=== PATIENT | male | born 1950 | race Caucasian/White ===

== ENCOUNTER 2016-04-29 05:28 | Emergency (ER) | payer OTHER ==
--- NOTE | 2016-04-29 07:19 | DIAGNOSTIC IMAGING REPORT ---
PROCEDURE: CT HEAD WITHOUT CONTRAST INDICATION: Fall injury, initial encounter TECHNIQUE: Noncontrast axial images with sagittal and coronal reformations. COMPARISON: None. FINDINGS: Mild cortical atrophy. Ventricular system and brain parenchyma are normal. No evidence of acute intracranial process. Mild bilateral maxillary sinus disease. Mastoids are clear. IMPRESSION: 1. Mild cortical atrophy 2. Sinus disease 3. Findings discussed with Dr. Morin at 07:19 a.m.[facility] Standard Time
--- NOTE | 2016-04-29 07:19 | DIAGNOSTIC IMAGING REPORT ---
PROCEDURE: CT HEAD WITHOUT CONTRAST INDICATION: Fall injury, initial encounter TECHNIQUE: Noncontrast axial images with sagittal and coronal reformations. COMPARISON: None. FINDINGS: Mild cortical atrophy. Ventricular system and brain parenchyma are normal. No evidence of acute intracranial process. Mild bilateral maxillary sinus disease. Mastoids are clear. IMPRESSION: 1. Mild cortical atrophy 2. Sinus disease 3. Findings discussed with Dr. Morin at 07:19 a.m.[facility] Standard Time
--- NOTE | 2016-04-29 07:23 | DIAGNOSTIC IMAGING REPORT ---
PROCEDURE: CT CERVICAL SPINE W/O CONTRAST CLINICAL INDICATION: Fall injury, initial encounter TECHNIQUE: Noncontrast axial images with sagittal and coronal reformations. COMPARISON: None. FINDINGS: Normal alignment without fracture. Mild degenerative changes. Moderate right C4-5 foraminal stenosis. Mild congenital spinal stenosis from C2 -3 to C6-7. IMPRESSION: 1. No acute changes 2. Mild degenerative changes with foraminal and spinal stenosis 3. Results discussed with Dr. Morin All CT scans at this facility use dose modulation, iterative reconstruction, and/or weight-based dosing when appropriate to reduce radiation dose to as low as reasonably achievable.
--- NOTE | 2016-04-29 07:28 | DIAGNOSTIC IMAGING REPORT ---
PROCEDURE: XR CHEST 2 VIEW INDICATION: Fall injury, initial encounter TECHNIQUE: PA and lateral view. COMPARISON: None. FINDINGS: Minor left basilar scarring. Cardiovascular structures are normal. Mild degenerative changes of the spine. No evidence of an acute fracture. IMPRESSION: 1. No acute changes 2. Mild degenerative changes of the thoracic spine
--- NOTE | 2016-04-29 07:31 | DIAGNOSTIC IMAGING REPORT ---
PROCEDURE: XR LUMBAR SPINE 2 OR 3 VIEWS INDICATION: Fall injury, initial encounter TECHNIQUE: Three views. COMPARISON: None. FINDINGS: Normal alignment. Chronic mild L1 compression fracture with L1-2 disc space narrowing and prominent spurring. Soft tissues are unremarkable. IMPRESSION: 1. Old L1 compression fracture 2. Degenerative changes
--- NOTE | 2016-04-29 07:32 | ED NURSING NOTES ---
Clinical Report - Nurses [facility] [place] [address] 04/29/2016 5:30 Patient: NADINE JAIMES TRIAGE Triage time 05:34. Acuity: LEVEL 4. Chief Complaint: NECK PAIN and BACK PAIN. --05:41 Diogo Burns R.N. 05:34 04/29/16. BP: 127/54. HR: 99. RR: 18. O2 saturation: 97%. Temp: 97.5 F. Pain level now 11/24. --05:41 Diogo Burns R.N. Weight: 97.5 kg stated. Height/Length: 71 inches Per Patient. BMI: 30. --05:39 Diogo Burns R.N. Medications Aspirin Oral. --05:36 Diogo Burns R.N. Hydrocodone-Acetaminophen Oral. --05:37 Diogo Burns R.N. Hydrochlorothiazide Oral. --05:39 Diogo Burns R.N. Medication/allergy information source: the patient. --05:41 Diogo Burns R.N. Allergies No Known Drug Allergy. --05:36 Diogo Burns R.N. History Arrived by private vehicle, and unaccompanied. [place] ( Pt had a GLF last night. Pt may have had pos LOC, but is not sure. Pt is having nausea, but no vomiting. Pt wasnt feeling dizzy or light headed. Pt fell due to a trip.). History of recent trauma (mild)- fall (yesterday). Treatment JUNIOR RECRUITER: None. SOCIAL HX: Never smoker. No alcohol use or drug use. --05:41 Diogo Burns R.N. PROBLEMS: Hypokalemia. Atrial Fibrillation. Crohn's Disease. Immunizations. --05:37 Diogo Burns R.N. Interventions ID band on patient. To treatment room. --05:41 Diogo Burns R.N. PHYSICAL ASSESSMENT GENERAL / NEURO / PSYCH: Alert. Oriented X 4. Appears in no acute distress. RESPIRATORY: Respirations not labored. Chest nontender. Breath sounds within normal limits. CVS: Normal heart rate and rhythm. Capillary refill less than 2 seconds. GI / : Abdomen soft and nontender. Bowel sounds within normal limits. EXTREMITIES: Sensation intact in extremities. ROM of extremities within normal limits. BACK: ( neck and back pain , but is able to ambulate without assistance. Pt has limited rom in his neck due to the pain.). Normal inspection of the neck and back. No neck or back tenderness. ROM of neck and back within normal limits. --05:42 Diogo Burns R.N. NURSING PROGRESS NOTES shelter monitor and pulse oximeter placed on patient; shelter monitor- Lead II. Two patient identifiers checked. Call light placed in reach. Side rails up x 1. Bed placed in lowest position. --05:42 Diogo Burns R.N. 06:39 04/29/16. BP: 141/84. HR: 73. RR: 16. O2 saturation: 99%. Pain level now 11/24. --06:40 Diogo Burns R.N. ( pt just came back from ct.). --06:40 Diogo Burns R.N. 07:18 04/29/2016 Percocet (Oxycodone-Acetaminophen) PO 5/325 mg Tablets 1 tab given. Allergies verified, confirmed 5 rights and sedative warning given to the patient. --07:18 Loree Parikh R.N. 07:19. The patient is calm and resting quietly. Overall patient status is the same- he states feels the same. GENERAL / NEURO / PSYCH: Alert. Oriented X 4. RESPIRATORY: No respiratory distress. SKIN: Skin is warm and dry. --07:19 Loree Parikh R.N. 07:18 04/29/16. BP: 120/75. HR: 76. RR: 16. O2 saturation: 99% on room air. Pain level now: 10/24. --07:19 Loree Parikh R.N. 07:45. The patient is calm and resting quietly. Overall patient status is improved- he states feels better. GENERAL / NEURO / PSYCH: Alert. Oriented X 4. RESPIRATORY: No respiratory distress. SKIN: Skin is warm and dry. --07:54 Jl, Loree, R.N. DISPOSITION / DISCHARGE Departure time: 744. Condition at departure: stable. No learning barriers present. Discharge instructions provided and reviewed with the patient. Patient verbalized understanding. Written instructions provided in Spanish. The patient was discharged home and accompanied by waiting for ride. He left the Emergency Department ambulatory. FALL RISK ASSESSMENT: Fall risk assessment completed. No fall risk identified. --07:53 Loree Parikh R.N. 07:49 04/29/16. BP: 128/81. HR: 66. RR: 16. O2 saturation: 99% on room air. Pain level now: 06/24. --07:53 Loree Parikh R.N. Locked/Released at 04/29/2016 7:54 by Loree Parikh R.N.
--- NOTE | 2016-04-29 07:32 | ED CLINICAL REPORT ---
Clinical Report - Physicians/Mid Levels [facility] [address] [place] [address] 04/29/2016 5:30 Patient: NDAINE JAIMES Time Seen: 05:50. Arrived- By private vehicle. Historian- patient. HISTORY OF PRESENT ILLNESS Chief Complaint: NECK PAIN and BACK PAIN FALL. Modifying factors. (worse with movement). It is described as being moderate in degree. It is described as being in the area of the cervical spine, upper thoracic spine, lower thoracic spine, upper lumbar spine and lower lumbar spine. The quality is noted to be "pain". No radiation. Onset was yesterday Slipped and fell on ice, hit head (possible brief loss of consciousness) and neck and back. and it is still present. It was abrupt in onset. No bladder dysfunction, bowel dysfunction, sensory loss or motor loss. Patient notes an injury. Mechanism of injury- he slipped and fell while walking. (On icy surface). Patient also notes injury to the head and chest and upper, mid and lower back. Similar symptoms previously: None. REVIEW OF SYSTEMS No fever, chills, sore throat, difficulty breathing or chest pain. No abdominal pain, vomiting, diarrhea or difficulty with urination. He has had a headache. Dizzy. He is not anticoagulated. PAST HISTORY PCP: JEROME [place] Ops: TA PROBLEMS: Hypokalemia. Atrial Fibrillation. Crohn's Disease. Immunizations. SOCIAL HISTORY Never smoker. ADDITIONAL NOTES The nursing notes have been reviewed. PHYSICAL EXAM Vital Signs: 04/29/2016 07:49 BP: 128/81. HR: 66. RR: 16. O2 saturation: 99%. Pain level now: 06/24. 04/29/2016 07:18 BP: 120/75. HR: 76. RR: 16. O2 saturation: 99%. Pain level now: 10/24. 04/29/2016 06:39 BP: 141/84. HR: 73. RR: 16. O2 saturation: 99%. 04/29/2016 05:34 BP: 127/54. HR: 99. RR: 18. O2 saturation: 97%. Temp: 97.5 F. Appearance: Alert. Patient in mild distress. Head: Scalp tenderness. No swelling of the head or ecchymosis of the head. ENT: Ears normal. Pharynx normal. Neck: Normal inspection. Mild soft tissue tenderness in the upper, mid and lower central neck area. CVS: Abnormal rhythm, which is irregularly irregular. Heart sounds normal. Respiratory: No respiratory distress. Breath sounds normal. Abdomen: Normal inspection. Soft and nontender. Bowel sounds normal. Back: Soft tissue tenderness in the upper, mid and lower central thoracic area and upper, mid and lower central lumbar area. LABS, X-RAYS, AND EKG X-Rays: The X-rays were interpreted by the radiologist and contemporaneously by me and discussed with the radiologist. LS-Spine X-rays: (T 12 L1 chronic degenerative changes). The X-rays were independently viewed by me. Chest X-ray: No acute disease. (No acute injury). The X-rays were independently viewed by me. CT C-Spine: No acute disease. CT Head: No acute disease. PROGRESS AND PROCEDURES Course of Care: 07:04 04/29/16. Xrays negative. Await radiologist read of CT Pt has a concussion with some dizziness as a part of a post concussive syndrome. Despite the known hx of AF he is not anticoagulated. For tonight that is good. It needs to be reconsidered in the long run. Disposition: Discharged. Condition: stable. CLINICAL IMPRESSION Concussion. Loss of consciousness for a few seconds. Atrial fibrillation with controlled rate. Contusion. (SCALP, UPPER AND LOWER BACK). INSTRUCTIONS (YOU HAVE A CONCUSSION. YOU NEED TO BE AWAKENED FOR A MENTAL STATUS CHECK EVERY [address] UNTIL THE DIZZINESS IS RESOLVED. IMMEDIATE RECHECK IN THE ED IF MENTAL STATUS IS ABNORMAL ASK YOU DR IF YOU NEED ANTICOAGULATION FOR YOUR A FIB. USE YOUR OWN PERCOSET). Follow-up: Follow up with your doctor. Call for the next available appointment. Understanding of the discharge instructions verbalized by patient. (Electronically signed by Arthur Morin MD 05/01/2016 23:05)
--- NOTE | 2016-04-29 07:32 | ED NURSING NOTES ---
Clinical Report - Nurses [facility] [place] [address] 04/29/2016 5:30 Patient: NADINE JAIMES TRIAGE Triage time 05:34. Acuity: LEVEL 4. Chief Complaint: NECK PAIN and BACK PAIN. --05:41 Diogo Burns R.N. 05:34 04/29/16. BP: 127/54. HR: 99. RR: 18. O2 saturation: 97%. Temp: 97.5 F. Pain level now 11/24. --05:41 Diogo Burns R.N. Weight: 97.5 kg stated. Height/Length: 71 inches Per Patient. BMI: 30. --05:39 Diogo Burns R.N. Medications Aspirin Oral. --05:36 Diogo Burns R.N. Hydrocodone-Acetaminophen Oral. --05:37 Diogo Burns R.N. Hydrochlorothiazide Oral. --05:39 Diogo Burns R.N. Medication/allergy information source: the patient. --05:41 Diogo Burns R.N. Allergies No Known Drug Allergy. --05:36 Diogo Burns R.N. History Arrived by private vehicle, and unaccompanied. [place] ([place]). ( Pt had a GLF last night. Pt may have had pos LOC, but is not sure. Pt is having nausea, but no vomiting. Pt wasnt feeling dizzy or light headed. Pt fell due to a trip.). History of recent trauma (mild)- fall (yesterday). Treatment INTERNET SALES ASSOCIATE: None. SOCIAL HX: Never smoker. No alcohol use or drug use. --05:41 Diogo Burns R.N. PROBLEMS: Hypokalemia. Atrial Fibrillation. Crohn's Disease. Immunizations. --05:37 Diogo Burns R.N. Interventions ID band on patient. To treatment room. --05:41 Diogo Burns R.N. PHYSICAL ASSESSMENT GENERAL / NEURO / PSYCH: Alert. Oriented X 4. Appears in no acute distress. RESPIRATORY: Respirations not labored. Chest nontender. Breath sounds within normal limits. CVS: Normal heart rate and rhythm. Capillary refill less than 2 seconds. GI / : Abdomen soft and nontender. Bowel sounds within normal limits. EXTREMITIES: Sensation intact in extremities. ROM of extremities within normal limits. BACK: ( neck and back pain , but is able to ambulate without assistance. Pt has limited rom in his neck due to the pain.). Normal inspection of the neck and back. No neck or back tenderness. ROM of neck and back within normal limits. --05:42 Diogo Burns R.N. NURSING PROGRESS NOTES cardiac monitor technician and pulse oximeter placed on patient; security monitor- Lead II. Two patient identifiers checked. Call light placed in reach. Side rails up x 1. Bed placed in lowest position. --05:42 Diogo Burns R.N. 06:39 04/29/16. BP: 141/84. HR: 73. RR: 16. O2 saturation: 99%. Pain level now 11/24. --06:40 Diogo Burns R.N. ( pt just came back from ct.). --06:40 Diogo Burns R.N. 07:18 04/29/2016 Percocet (Oxycodone-Acetaminophen) PO 5/325 mg Tablets 1 tab given. Allergies verified, confirmed 5 rights and sedative warning given to the patient. --07:18 Loree Parikh R.N. 07:19. The patient is calm and resting quietly. Overall patient status is the same- he states feels the same. GENERAL / NEURO / PSYCH: Alert. Oriented X 4. RESPIRATORY: No respiratory distress. SKIN: Skin is warm and dry. --07:19 Loree Parikh R.N. 07:18 04/29/16. BP: 120/75. HR: 76. RR: 16. O2 saturation: 99% on room air. Pain level now: 10/24. --07:19 Loree Parikh R.N. 07:45. The patient is calm and resting quietly. Overall patient status is improved- he states feels better. GENERAL / NEURO / PSYCH: Alert. Oriented X 4. RESPIRATORY: No respiratory distress. SKIN: Skin is warm and dry. --07:54 Jl, Loree, R.N. DISPOSITION / DISCHARGE Departure time: 744. Condition at departure: stable. No learning barriers present. Discharge instructions provided and reviewed with the patient. Patient verbalized understanding. Written instructions provided in Romanian. The patient was discharged home and accompanied by waiting for ride. He left the Emergency Department ambulatory. FALL RISK ASSESSMENT: Fall risk assessment completed. No fall risk identified. --07:53 Loree Parikh R.N. 07:49 04/29/16. BP: 128/81. HR: 66. RR: 16. O2 saturation: 99% on room air. Pain level now: 06/24. --07:53 Loree Parikh R.N. Locked/Released at 04/29/2016 7:54 by Loree Parikh R.N.
--- NOTE | 2016-04-29 07:33 | ED ORDER SUMMARY ---
..... Patient: NADINE JAIMES OrderSheet [facility] VisitID: [id number] [place] [address] 65y, M Registration Date/Time: 04/29/2016 ORDER SHEET Weight: 97.5 kg (stated) Allergies: No Known Drug Allergy GENERAL ORDERS: CT Head wo Cont Urgent (05:57 04/29/2016 Kayy SAUNDERS) (Ack 6:00 CHagerty ER Florist Helper) (6:20 TLewis R.N.) CT Cervical Spine wo Cont Urgent (05:57 04/29/2016 Kayy SAUNDERS) (Ack 6:00 CHagerty ER Florist Helper) (6:20 TLewis R.N.) Chest 2V Urgent (05:57 04/29/2016 Kayy SAUNDERS) (Ack 6:00 CHagerty ER Florist Helper) (6:20 TLewis R.N.) Lumbar Spine 2 or 3V Urgent (05:58 04/29/2016 Kayy SAUNDERS) (Ack 6:00 CHagerty ER Florist Helper) (6:20 TLewis R.N.) MEDICATION ORDERS: Percocet PO 1 tab (NOW) (07:10 04/29/2016 Kayy SAUNDERS) (Ack 7:13 Lionel R.N.) (7:18 Lionel R.N.) IV FLUIDS: ORDER SHEET NOTES: [Electronically signed by Loree Parikh R.N. (07:54 04/29/2016)] [Electronically signed by Arthur Morin MD (23:05 05/01/2016)] [Electronically locked/signed by Loree Parikh R.N. (07:54 04/29/2016)]
--- NOTE | 2016-04-29 07:33 | ED ORDER SUMMARY ---
..... Patient: NADINE JAIMES OrderSheet [facility] VisitID: [id number] [place] [address] 65y, M Registration Date/Time: 04/29/2016 ORDER SHEET Weight: 97.5 kg (stated) Allergies: No Known Drug Allergy GENERAL ORDERS: CT Head wo Cont Urgent (05:57 04/29/2016 Kayy SAUNDERS) (Ack 6:00 CHagerty ER Station Operator) (6:20 TLewis R.N.) CT Cervical Spine wo Cont Urgent (05:57 04/29/2016 Kayy SAUNDERS) (Ack 6:00 CHagerty ER Station Operator) (6:20 TLewis R.N.) Chest 2V Urgent (05:57 04/29/2016 Kayy SAUNDERS) (Ack 6:00 CHagerty ER Station Operator) (6:20 TLewis R.N.) Lumbar Spine 2 or 3V Urgent (05:58 04/29/2016 Kayy SAUNDERS) (Ack 6:00 CHagerty ER Station Operator) (6:20 TLewis R.N.) MEDICATION ORDERS: Percocet PO 1 tab (NOW) (07:10 04/29/2016 Kayy SAUNDERS) (Ack 7:13 Lionel R.N.) (7:18 Lionel R.N.) IV FLUIDS: ORDER SHEET NOTES: [Electronically signed by Loree Parikh R.N. (07:54 04/29/2016)] [Electronically signed by Arthur Morin MD (23:05 05/01/2016)] [Electronically locked/signed by Loree Parikh R.N. (07:54 04/29/2016)]
--- NOTE | 2016-05-01 23:06 | ED MAR SUMMARY ---
..... Medication Administration Record [facility] [address] [place] [address] Patient: NADINE JAIMES Visit ID: [id number] 65y, M Weight: 97.5 kg Height/Length: 71 in BMI: 30 ALLERGIES: No Known Drug Allergy Given 07:18 04/29/2016 Loree Parikh R.N. Medication Administered: PERCOCET [PO] (OXYCODONE-ACETAMINOPHEN), Dose: 1 tab 5/325 mg Tablets PO. Medication Ordered: Percocet PO 1 tab (NOW).
--- NOTE | 2016-05-01 23:06 | ED MED RECONCILIATION SUMMARY ---
Patient: NADINE JAIMES Medication Reconciliation Report [facility] VisitID: [id number] [address] [place] [address] 65y, M Registration Date/Time: 04/29/2016 Weight: 97.5 kg Height/Length: 71 in. BMI: 30.0 ALLERGIES: No Known Drug Allergy The patient's Home Medications are listed below: THE FOLLOWING MEDICATIONS NEED TO BE RECONCILED: Aspirin Oral Hydrochlorothiazide Oral Hydrocodone-Acetaminophen Oral The source(s) of the original Home Medication information: patient The following Medications were given to the patient in the Emergency Department: Percocet [PO] PO 1 tab, administered: 04/29/2016 7:18:00 AM The following Medications were prescribed to the patient: None.
--- NOTE | 2016-05-01 23:06 | ED MED RECONCILIATION SUMMARY ---
Patient: NADINE JAIMES Medication Reconciliation Report [facility] VisitID: [id number] [address] [place] [address] 65y, M Registration Date/Time: 04/29/2016 Weight: 97.5 kg Height/Length: 71 in. BMI: 30.0 ALLERGIES: No Known Drug Allergy The patient's Home Medications are listed below: THE FOLLOWING MEDICATIONS NEED TO BE RECONCILED: Aspirin Oral Hydrochlorothiazide Oral Hydrocodone-Acetaminophen Oral The source(s) of the original Home Medication information: patient The following Medications were given to the patient in the Emergency Department: Percocet [PO] PO 1 tab, administered: 04/29/2016 7:18:00 AM The following Medications were prescribed to the patient: None.
--- NOTE | 2016-05-01 23:06 | ED DISCHARGE INSTRUCTIONS ---
Patient: NADINE JAIMES General Instructions [facility] VisitID: [id number] [place] [address] 65y, M Registration Date/Time: 04/29/2016 Concussion. Loss of consciousness for a few seconds. Atrial fibrillation with controlled rate. Contusion. (SCALP, UPPER AND LOWER BACK). INSTRUCTIONS (YOU HAVE A CONCUSSION. YOU NEED TO BE AWAKENED FOR A MENTAL STATUS CHECK EVERY [address] UNTIL THE DIZZINESS IS RESOLVED. IMMEDIATE RECHECK IN THE ED IF MENTAL STATUS IS ABNORMAL ASK YOU DR IF YOU NEED ANTICOAGULATION FOR YOUR A FIB. USE YOUR OWN PERCOSET). Follow-up: Follow up with your doctor. Call for the next available appointment. Understanding of the discharge instructions verbalized by patient. ADDITIONAL INFORMATION Contusion,Soft Tissue You have a CONTUSION, which is a bruise with swelling and some bleeding under the skin. There are no broken bones. This injury takes a few days to a few weeks to heal. Home Care: 1) Keep the injured part elevated to reduce pain and swelling. This is especially important during the first 48 hours. 2) Make an ice pack (ice cubes in a plastic bag, wrapped in a towel) and apply for 20 minutes every 1-2 hours the first day. Continue this 3-4 times a day until the pain and swelling goes away. 3) You may use acetaminophen (Tylenol) or ibuprofen (Motrin, Advil) to control pain, unless another pain medicine was prescribed. [ NOTE : If you have chronic liver or kidney disease or ever had a stomach ulcer or GI bleeding, talk with your doctor before using these medicines.] Follow Up with your doctor or this facility if you are not improving within the next THREE days. [NOTE: If X-rays were taken, they will be reviewed by a radiologist. You will be notified of any new findings that may affect your care.] Get Prompt Medical Attention if any of the following occur: -- Pain or swelling increases -- Injured arm or leg becomes cold, blue, numb or tingly -- Redness, warmth or drainage from the skin Concussion (with Wake-Up) A concussion happens when you hit your head with enough force to shake up the brain. This may cause you to lose consciousness be "knocked out" - but not always. Depending on how hard you hit your head, it will take from a few hours up to a few days to get better. Sometimes symptoms may last a few months or longer. This is called post-concussion syndrome. At first, you may have a headache, nausea, vomiting, or dizziness. You may also have problems concentrating or remembering things. This is normal. Symptoms should get better as the hours and days go by. Symptoms that get worse could be a sign of a more serious injury. This might be a bruise or bleeding in the brain. Thats why its important to watch for the warning signs listed below. Home care Follow these tips to help care for yourself at home: During the next day (24 hours) someone must stay with you. This person should wake you every 2 hours to check for the signs below. If your face or scalp swells, apply an ice pack for 20 minutes every 1 to 2 hours. Do this until the swelling starts to go down. You can make an ice pack by putting ice cubes in a plastic bag and wrapping the bag in a towel. for 20 minutes every 1-2 hours until the swelling starts to go down. You may use acetaminophen to control pain, unless another pain medicine was prescribed. If you have chronic liver or kidney disease, talk with your doctor before using these medicines. Also talk with your doctor if you ever had a stomach ulcer or GI bleeding. For the next 24 hours: Dont drink alcohol or take sedatives or medicines that make you sleepy. Dont drive or operate machinery. Avoid doing anything strenuous. Dont lift or strain. Dont return to sports or any activity that could cause you to hit your head until all symptoms are gone and you have been cleared by your doctor. A second head injury before fully recovering from the first one can lead to serious brain injury. Follow-up care Follow up with your doctor in 1 week, or as directed. Note: A radiologist will review any X-rays or CT scans that were taken. You will be told of any new findings that may affect your care. When to seek medical care Get prompt medical attention if any of these occur: Repeated vomiting Headache or dizziness that is severe or gets worse Unusual drowsiness, or unable to wake up as usual Confusion or change in behavior or speech, or memory loss Blurred vision Convulsion (seizure) Swelling on the scalp or face that gets worse Redness, warmth, or pus from the swollen area Fluid draining from or bleeding from the nose or ears You have been given the following additional information: Contusion, Soft Tissue Concussion w/ Wake-Up (Electronically signed by Arthur Morin MD 05/01/2016 23:05)
--- NOTE | 2016-05-01 23:06 | ED MAR SUMMARY ---
..... Medication Administration Record [facility] [address] [place] [address] Patient: NADINE JAIMES Visit ID: [id number] 65y, M Weight: 97.5 kg Height/Length: 71 in BMI: 30 ALLERGIES: No Known Drug Allergy Given 07:18 04/29/2016 Loree Parikh R.N. Medication Administered: PERCOCET [PO] (OXYCODONE-ACETAMINOPHEN), Dose: 1 tab 5/325 mg Tablets PO. Medication Ordered: Percocet PO 1 tab (NOW).
== END 2016-04-29 07:45 | disposition home or self-care (01) ==
LOC: ED SRH 05:28
DX: S06.0X1A Concussion with loss of consciousness of 30 minutes or less, initial encounter (principal); S30.0XXA Contusion of lower back and pelvis, initial encounter; S20.229A Contusion of unspecified back wall of thorax, initial encounter; S00.03XA Contusion of scalp, initial encounter; W00.0XXA Fall on same level due to ice and snow, initial encounter; Y93.9 Activity, unspecified; Y92.9 Unspecified place or not applicable; Y99.9 Unspecified external cause status; I48.91 Unspecified atrial fibrillation